=== PATIENT | male | born 1955 | race Caucasian/White ===

== ENCOUNTER → 2020-08-09 09:44 | Outpatient (BNVA) | payer MEDICARE, SELFPAY | PROVIDERS: PCP Internal Medicine; Visit Provider Physician Assistant | DX: M25.571 Pain in right ankle and joints of right foot (principal); S86.011A Strain of right Achilles tendon, initial encounter; X58.XXXA Exposure to other specified factors, initial encounter; Y93.9 Activity, unspecified; Y92.9 Unspecified place or not applicable; Y99.8 Other external cause status | CPT/HCPCS: 99202 ==

== ENCOUNTER 2020-09-10 07:00 | Outpatient (RCR) | payer MEDICARE, SELFPAY | END 2020-10-14 08:20 | disposition other institution (70) | LOC: HO.PTWFD 07:00 | PROVIDERS: PCP Internal Medicine; Visit Provider Physician Assistant | DX: S86.019A Strain of unspecified Achilles tendon, initial encounter (principal) | CPT/HCPCS: 97012; 97035; 97110; 97140; 97162; 97535 ==